=== PATIENT | female | born 1955 | race Caucasian/White ===

== ENCOUNTER 2019-11-05 09:22 | Emergency (ER) | payer OTHER, MEDICARE ==
[~2019-11-05] VITALS: Ht 162.6 cm; Wt 133.8 kg
--- NOTE | ~2019-11-05 | EKG ---
[facility] [place] [address] ELECTROCARDIOGRAM REPORT Name: SELENA QUIROS Room #: PRE [facility]..#: [id number] Admission: Attend Phys: Discharge: Date of : 53 Report #: [id number] THIS REPORT FOR: cc: Pavel Zhao MD ~ THIS REPORT FOR: //name// [facility] ED Test Date: 2019-11-05 Test Time: 09:29:27 Pat Name: SELENA QUIROS Department: Room: Gender: F [employer] Information [employer] Engineer: [place] : 1955 Requested By: Erlinda Powers Order Number: [id number] MD: Measurements Intervals [place] Rate: 111 P: 84 FL: 169 QRS: -42 QRSD: 85 T: 81 QT: 342 QTc: 465 Interpretive Statements Sinus tachycardia Left axis deviation Abnormal R-wave progression, late transition No previous ECG available for comparison [email or web address] By: 8 8 Pavel Zhao MD /EPI
[2019-11-05 10:14] LABS: ABSOLUTE NEUTROPHILS 7.5 thou/uL (1.4-8.2); BASOPHILS 0.5 % (0.0-2.0); EOSINOPHILS 2.1 % (0.0-3.0); HEMATOCRIT 38.4 % (37.0-47.0); HEMOGLOBIN 12.2 gm/dL (12.0-15.0); LYMPHOCYTES 15.6 % (24.0-44.0); MCH 29.1 pg (26.0-34.0); MCHC 31.8 g/dL (28.0-37.0); MCV 91.5 fL (80.0-100.0); MONOCYTES 4.7 % (1.0-8.0); PLATELET COUNT 273 thou/uL (150-400); POLYS 77.1 % (36.0-66.0); RDW 13.5 % (10.5-14.5); WBC 9.7 thou/uL (4.0-11.0)
[2019-11-05 10:19] LABS: ANION GAP 0 mmol/L (7-16); BUN 16 mg/dL (7-18); CALCIUM 8.7 mg/dL (8.5-10.1); CHLORIDE 98 mmol/L (98-107); CO2 41 mmol/L (21-32); CREATININE 0.9 mg/dL (0.6-1.0); GLUCOSE 148 mg/dL (74-106); POTASSIUM 3.9 mmol/L (3.5-5.1); SODIUM 139 mmol/L (136-145)
[2019-11-05 10:25] LABS: ALBUMIN 3.4 g/dL (3.4-5.0); DIRECT BILIRUBIN < 0.1 mg/dL (<0.1-0.2); SGOT 16 U/L (15-37); SGPT 45 U/L (30-65); TOTAL BILIRUBIN 0.3 mg/dL (<0.1-1.0); TOTAL PROTEIN 8.1 g/dL (6.4-8.2)
[2019-11-05 11:29] LABS: URINE BILIRUBIN NEGATIVE (Negative); URINE BLOOD TRACE (Negative); URINE CLARITY SL CLOUDY; URINE COLOR YELLOW; URINE GLUCOSE-RANDOM* NEGATIVE (Negative); URINE KETONES NEGATIVE (Negative); URINE LEUKOCYTES-REFLEX NEGATIVE (Negative); URINE NITRITE-REFLEX NEGATIVE (Negative); URINE PROTEIN (DIPSTICK) TRACE (Negative); URINE SPECIFIC GRAVITY >= 1.030 (1.005-1.035); URINE UROBILINOGEN 0.2 E.U./dl (0.2-1.0)
[2019-11-05 15:32] VITALS: BP 152/55
== END 2019-11-05 15:34 | disposition home or self-care (01) ==
LOC: ER 09:22
PROVIDERS: Emergency Medicine
DX: J44.1 Chronic obstructive pulmonary disease with (acute) exacerbation (principal)